=== PATIENT | female | born 2000 | race Caucasian/White ===

== ENCOUNTER → 2022-05-06 | Outpatient (REF) | payer OTHER | LOC: M LAB REF 21:14 | PROVIDERS: ATTEND Physician Assistant | DX: R50.9 Fever, unspecified (principal); R05.9 Cough, unspecified ==

== ENCOUNTER 2023-02-27 20:42 | Emergency (ER) | payer OTHER ==
[~2023-02-27] VITALS: Ht 170.2 cm; Wt 68.2 kg
[2023-02-27] MEDS ORDERED: MULTTAB20 PO (20:52)
[2023-02-27 23:05] VITALS: BP 135/77; TEMP 98.1; O2SAT 99
== END 2023-02-28 00:02 | disposition home or self-care (01) ==
LOC: M ED 20:42
DX: O9A.212 Injury, poisoning and certain other consequences of external causes complicating pregnancy, second trimester (principal); Z3A.15 15 weeks gestation of pregnancy; S92.354A Nondisplaced fracture of fifth metatarsal bone, right foot, initial encounter for closed fracture; W22.8XXA Striking against or struck by other objects, initial encounter; Y92.009 Unspecified place in unspecified non-institutional (private) residence as the place of occurrence of the external cause; Y93.01 Activity, walking, marching and hiking; Y99.8 Other external cause status

== ENCOUNTER 2023-07-21 11:54 | Emergency (ER) | payer OTHER ==
[~2023-07-21] VITALS: Ht 170.2 cm; Wt 75.2 kg
[~2023-07-21 11:54] MED LIST: MULTTAB20 PO
[2023-07-21] MEDS ORDERED: MAGN400T33 (12:03)
[2023-07-21] MEDS ORDERED: FAMO1TAB11 (12:03)
[2023-07-21 13:49] VITALS: BP 132/76; TEMP 98.6; O2SAT 98
== END 2023-07-21 13:51 | disposition home or self-care (01) ==
LOC: M ED 11:54
DX: K21.9 Gastro-esophageal reflux disease without esophagitis (principal); R09.89 Other specified symptoms and signs involving the circulatory and respiratory systems; Z87.11 Personal history of peptic ulcer disease

== ENCOUNTER 2023-07-28 14:12 | Outpatient (CLI) | payer OTHER ==
[~2023-07-28] VITALS: Ht 170.2 cm; Wt 76.3 kg
[~2023-07-28 14:12] MED LIST changes: +FAMO1TAB11; +MAGN400T33
[2023-07-28] MEDS ORDERED: OMEP10CASR PO (14:26)
== END 2023-07-28 15:40 | disposition home or self-care (01) ==
LOC: M LDO 14:12
PROVIDERS: ATTEND Obstetrics & Gynecology
DX: O36.8130 Decreased fetal movements, third trimester, not applicable or unspecified (principal); Z3A.36 36 weeks gestation of pregnancy; Z79.899 Other long term (current) drug therapy
CPT/HCPCS: 59025; G0463

== ENCOUNTER 2023-08-13 10:00 | Outpatient (CLI) | payer OTHER ==
[~2023-08-13] VITALS: Ht 170.2 cm; Wt 78.8 kg
[~2023-08-13 10:00] MED LIST changes: +OMEP10CASR PO
[2023-08-13 10:29] VITALS: BP 136/79
[2023-08-13 10:45] VITALS: BP 141/79
[2023-08-13 11:00] VITALS: BP 130/82
[2023-08-13 11:40] LABS: HEMATOCRIT 36.5 % (36.0-47.0); HEMOGLOBIN 12.2 g/dl (12.0-15.5); MEAN CORPUSCULAR HEMOGLOBIN 29.5 pg (27.0-33.0); MEAN CORPUSCULAR HGB CONC 33.4 g/dl (32.0-36.5); MEAN CORPUSCULAR VOLUME 88.2 fl (80.0-96.0); PLATELET COUNT, AUTOMATED 203 10^3/uL (150-450); RED BLOOD COUNT 4.14 10^6/uL (4.00-5.40); WHITE BLOOD COUNT 14.3 10^3/uL (4.0-10.0)
[2023-08-13] MEDS ORDERED: ONDA4TAB6 (11:41)
[2023-08-13 11:44] LABS: APPEARANCE, URINE CLEAR (CLEAR); BACTERIA, URINE AUTO NEGATIVE (NEGATIVE); BILIRUBIN, URINE AUTO NEGATIVE (NEGATIVE); BLOOD, URINE BLOOD NEGATIVE (NEGATIVE); COLOR, URINE STRAW (YELLOW); GLUCOSE, URINE (UA) AUTO NEGATIVE (NEGATIVE); KETONE, URINE AUTO NEGATIVE (NEGATIVE); LEUKOCYTE ESTERASE, URINE AUTO 1+ (NEGATIVE); NITRITE, URINE AUTO NEGATIVE (NEGATIVE); PROTEIN, URINE AUTO NEGATIVE (NEGATIVE); RBC, URINE AUTO 1 /HPF (0-3); SPECIFIC GRAVITY URINE AUTO 1.002 (1.002-1.035); SQUAMOUS EPITHELIAL CELL UR AU 3 /HPF (0-6); UROBILINOGEN, URINE AUTO 0.2 mg/dL (0.0-2.0); WBC, URINE AUTO 1 /HPF (0-3)
[2023-08-13] MEDS ORDERED: HOME MED LIST COMPLETE! XX SCH (11:45)
[2023-08-13] MEDS ORDERED: LR 1,000 ML IV ONE (12:05)
[2023-08-13 12:09] LABS: BLOOD UREA NITROGEN 6 MG/DL (9-23); CARBON DIOXIDE LEVEL 21 MMOL/L (20-31); CHLORIDE LEVEL 104 MMOL/L (98-107); CREATININE FOR GFR 0.54 MG/DL (0.55-1.30); GLOMERULAR FILTRATION RATE > 60.0 (>60); GLUCOSE, FASTING 85 MG/DL (60-100); POTASSIUM SERUM 3.9 MMOL/L (3.5-5.1); SODIUM LEVEL 138 MMOL/L (136-145)
== END 2023-08-13 12:57 | disposition home or self-care (01) ==
LOC: M LDO 10:00
PROVIDERS: ATTEND Obstetrics & Gynecology
DX: O26.893 Other specified pregnancy related conditions, third trimester (principal); R19.7 Diarrhea, unspecified; Z3A.39 39 weeks gestation of pregnancy; Z79.899 Other long term (current) drug therapy
CPT/HCPCS: 59025; 76815; 80048; 81001; 85027; G0463

== ENCOUNTER 2023-08-20 14:13 | Inpatient (IN) | payer OTHER ==
[~2023-08-20] VITALS: Ht 170.2 cm; Wt 78.2 kg
[2023-08-20] VITALS (26 sets, daily range): BP systolic 89–147; BP diastolic 53–90
[~2023-08-20 14:13] MED LIST changes: +ONDA4TAB6
[2023-08-20] MEDS ORDERED: HOME MED LIST COMPLETE! XX SCH (14:35)
[2023-08-20] MEDS ORDERED: METHYLERGONOVINE MALEATE 0.2MG/ML 1ML VIAL IM PRN (15:15)
[2023-08-20] MEDS ORDERED: miSOPROStol 50MCG 1/2 TABLET SL ONE (15:15)
[2023-08-20] MEDS ORDERED: LACTATED RINGER'S 1000 ML IV STA (15:15)
[2023-08-20] MEDS ORDERED: OXYTOCIN DRIP 30 UNITS in IV 1 EA IV PRN ×4 (15:15)
[2023-08-20] MEDS ORDERED: LIDOCAINE 1% MDV 20ML VIAL INFIL PRN (15:15)
[2023-08-20] MEDS ORDERED: TRANEXAMIC ACID INJection 1,000 MG in NS 100 ML IV PRN (15:15)
[2023-08-20] MEDS ORDERED: CARBOPROST TROMETHAMINE 250 MCG/ML AMP IM PRN (15:15)
[2023-08-20 16:07] LABS: HEMATOCRIT 35.4 % (36.0-47.0); HEMOGLOBIN 11.8 g/dl (12.0-15.5); MEAN CORPUSCULAR HEMOGLOBIN 29.2 pg (27.0-33.0); MEAN CORPUSCULAR HGB CONC 33.3 g/dl (32.0-36.5); MEAN CORPUSCULAR VOLUME 87.6 fl (80.0-96.0); PLATELET COUNT, AUTOMATED 191 10^3/uL (150-450); RED BLOOD COUNT 4.04 10^6/uL (4.00-5.40); WHITE BLOOD COUNT 15.1 10^3/uL (4.0-10.0)
[2023-08-20] MEDS ORDERED: NALOXONE INJ 0.4MG/1ML VIAL IV PRN ×2 (19:45)
[2023-08-20] MEDS ORDERED: LR 500 ML IV PRN ×2 (19:45)
[2023-08-20] MEDS ORDERED: diphenhydrAMINE 50MG/ML VIAL IV PRN ×2 (19:45)
[2023-08-20] MEDS ORDERED: FENTANYL/ROPIVACAINE/NACL BAG 100 ML EPIDURAL SCH (19:45)
[2023-08-20] MEDS ORDERED: ONDANSETRON 4MG 2ML VIAL IV PRN ×2 (19:45)
[2023-08-20] MEDS ORDERED: ePHEDrine SULFATE 25 MG/5 ML(5MG/ML) SYRINGE IVP PRN ×2 (19:45)
[2023-08-20] MEDS ORDERED: EPIDURAL/PCA KEYS XX PRN ×2 (19:45)
[2023-08-20] MEDS ORDERED: OXYTOCIN DRIP 30 UNITS in IV 1 EA IV SCH (20:00)
[2023-08-20] MEDS: LR 1,000 ML IV SCH (20:12)
[2023-08-20] MEDS ORDERED: CALCIUM CARBONATE 500 MG CHEW U/D PO ONE (23:30)
[2023-08-21] VITALS (12 sets, daily range): BP systolic 117–137; BP diastolic 67–80; O2SAT 96–100
[2023-08-21] MEDS: LR 1,000 ML IV SCH (00:33)
[2023-08-21] MEDS ORDERED: IBUPROFEN 600MG TAB PO PRN (01:55)
[2023-08-21] MEDS ORDERED: ACETAMINOPHEN TAB 650MG DOSE (2X325MG) PO PRN (01:55)
[2023-08-21] MEDS ORDERED: ACETAMINOPHEN 500 MG TAB PO PRN (01:55)
[2023-08-21] MEDS ORDERED: DOCUSATE SODIUM 100MG CAPSULE PO PRN (01:55)
[2023-08-21] MEDS ORDERED: RHOGAM 300MCG (1500IU) INJ IM SCH (01:55)
[2023-08-21] MEDS ORDERED: DIBUCAINE 1% OINTMENT 30GM TOP PRN (01:55)
[2023-08-21] MEDS ORDERED: OXYTOCIN DRIP 30 UNITS in IV 1 EA IV SCH (01:55)
[2023-08-21] MEDS ORDERED: METHYLERGONOVINE MALEATE 0.2 MG TAB PO PRN (01:55)
[2023-08-21] MEDS: PRENATAL VITAMINS CHEWABLE TABLET PO SCH (07:43)
[2023-08-21] MEDS: IBUPROFEN 800 MG TAB PO PRN ×2 (08:02→19:42)
[2023-08-22 06:00] VITALS: BP 128/63; O2SAT 96
[2023-08-22] MEDS: IBUPROFEN 800 MG TAB PO PRN ×2 (07:59→20:03)
[2023-08-22] MEDS: PRENATAL VITAMINS CHEWABLE TABLET PO SCH (07:59)
[2023-08-22 18:00] VITALS: BP 125/79; O2SAT 100
[2023-08-23 06:00] VITALS: BP 130/73; O2SAT 96
[2023-08-23] MEDS: PRENATAL VITAMINS CHEWABLE TABLET PO SCH (09:03)
== END 2023-08-23 11:17 | disposition home or self-care (01) | DRG 807 ==
LOC: M LDO 14:13 → M LDI 15:13 → M OBS 08-21 03:43
PROVIDERS: ADMIT Advanced Practice Midwife; ATTEND Advanced Practice Midwife
PROC: 10E0XZZ Delivery of Products of Conception, External Approach (ICD-10-PCS; principal; 2023-08-21)
PROC: 0HQ9XZZ Repair Perineum Skin, External Approach (ICD-10-PCS; 2023-08-21)
DX: O42.02 Full-term premature rupture of membranes, onset of labor within 24 hours of rupture (principal); Z37.0 Single live birth; Z3A.40 40 weeks gestation of pregnancy; O70.0 First degree perineal laceration during delivery